=== PATIENT | female | born 1990 | race Caucasian/White ===

== ENCOUNTER 2018-08-30 21:34 | Emergency (ER) | payer OTHER ==
[~2018-08-30] VITALS: Ht 172.7 cm; Wt 83.9 kg
[2018-08-30] MEDS ORDERED: Augmentin 875-1 EACH PO (22:15)
== END 2018-08-30 23:45 | disposition home or self-care (01) ==
LOC: ER 21:34
DX: S61.451A Open bite of right hand, initial encounter (principal); L03.113 Cellulitis of right upper limb; W55.81XA Bitten by other mammals, initial encounter
CPT/HCPCS: 73120; 90471; 90714; 96365; 96366; 99283-25; J0295; J2543